=== PATIENT | female | born 1945 | race Caucasian/White ===

== ENCOUNTER 2019-07-16 07:45 | Inpatient (IN) | payer MEDICARE, BC ==
[~2019-07-16] VITALS: Ht 152.4 cm; Wt 70.5 kg
[2019-07-16] MEDS ORDERED: BIMA2.5D OP (08:25)
[2019-07-16] MEDS ORDERED: GABA-532 PO (08:25)
[2019-07-16] MEDS ORDERED: DULO-31 PO (08:25)
[2019-07-16] MEDS ORDERED: CYCL-394 PO (08:25)
[2019-07-16] MEDS ORDERED: NITR100C6 PO (08:25)
[2019-07-16] MEDS ORDERED: ATOR10TA87 PO (08:25)
[2019-07-16] MEDS ORDERED: SUCR1TAB34 PO (08:25)
[2019-07-16] MEDS ORDERED: TRAM50TA2 PO (08:25)
[2019-07-16] MEDS ORDERED: LEVO125T PO (08:25)
[2019-07-16] MEDS ORDERED: PANT-47 PO (08:25)
[2019-07-16] MEDS ORDERED: DILT120C51 PO (08:25)
[2019-07-16 08:43] LABS: BASOPHILS % (AUTO) 0.3 % (0-1); EOSINOPHILS # (AUTO) 0.1 X10'3 (0-0.9); EOSINOPHILS % (AUTO) 0.8 % (0-6); HEMATOCRIT 46.5 % (35.0-45.0); HEMOGLOBIN 15.8 g/dl (12.0-16.0); LYMPHOCYTES # (AUTO) 0.4 X10'3 (1.1-4.8); LYMPHOCYTES % (AUTO) 3.5 % (21-51); MEAN CORPUSCULAR HGB CONC 33.9 g/dL (33.0-36.5); MEAN CORPUSCULAR VOLUME 97.4 FL (78-98); MEAN PLATELET VOLUME 8.5 FL (7.4-10.4); MONOCYTES # (AUTO) 1.1 X10'3 (0-0.9); NEUTROPHILS # (AUTO) 10.5 X10'3 (1.8-7.7); NEUTROPHILS % (AUTO) 86.4 % (42-75); PLATELET COUNT 352 X10'3 (140-440); RED BLOOD COUNT 4.78 X10'6 (4.20-5.60); RED CELL DISTRIBUTION WIDTH 14.6 % (11.5-14.5); WHITE BLOOD COUNT 12.1 X10'3 (4.5-11.0)
[2019-07-16 08:58] LABS: ALANINE AMINOTRANSFERASE 19 U/L (12-78); ALBUMIN 2.6 G/DL (3.4-5.0); ALBUMIN/GLOBULIN RATIO 0.6 (1.1-1.5); ALKALINE PHOSPHATASE 123 IU/L (46-116); ANION GAP 10 (8-16); ASPARTATE AMINO TRANSFERASE 15 U/L (10-37); BILIRUBIN,TOTAL 0.4 MG/DL (0.1-1.0); BLOOD UREA NITROGEN 11 MG/DL (7-18); BUN/CREATININE RATIO 12.9 (6.6-38.0); CALCIUM 8.1 MG/DL (8.5-10.1); CHLORIDE 106 MMOL/L (99-107); CREATININE 0.85 MG/DL (0.40-0.90); GLUCOSE 143 MG/DL (70-104); POTASSIUM 3.5 MMOL/L (3.5-5.1); SODIUM 144 MMOL/L (135-145); TOTAL CARBON DIOXIDE 28.1 MMOL/L (24-32); TOTAL PROTEIN 7.3 G/DL (6.4-8.2); eGFR 65 ML/MIN
[2019-07-16] MEDS ORDERED: ondansetron/PF 4mg/2ml inj IV PRN (09:30)
[2019-07-16] MEDS ORDERED: magnesium 4gm in 100ml NS 100 ML IV PRN (09:30)
[2019-07-16] MEDS ORDERED: magnesium hydroxide 30ml (MOM) UD suspension PO PRN (09:30)
[2019-07-16] MEDS ORDERED: magnesium Cl slow-release 64mg tablet PO PRN (09:30)
[2019-07-16] MEDS ORDERED: HYDROcodone/acetaminophen 10/325mg tab PO PRN (09:30)
[2019-07-16] MEDS ORDERED: HYDROcodone/acetaminophen 5mg/325mg tablet PO PRN (09:30)
[2019-07-16] MEDS ORDERED: mag hydrox/Alum hydrox/simeth 30ml oral suspension PO PRN (09:30)
[2019-07-16] MEDS ORDERED: potassium CL 10mEq/100ml bag 100 ML IV PRN ×2 (09:30)
[2019-07-16] MEDS ORDERED: potassium Cl 20 mEq SR tablet PO PRN (09:30)
[2019-07-16] MEDS ORDERED: morphine 2 MG/ML inj. syringe IV PRN ×2 (09:30)
[2019-07-16] MEDS ORDERED: acetaminophen 325mg tablet PO PRN ×2 (09:30)
[2019-07-16] MEDS ORDERED: magnesium 2GM in 50ml NS 50 ML IV PRN (09:30)
[2019-07-16] MEDS ORDERED: LIDOcaine 1% W/epiNEPHrine 1:100,000 20ml vial SQ ONE (09:35)
--- NOTE | 2019-07-16 10:58 | NUR ---
DR ELIAS IN ROOM. NUMBING PT FOR THORACENESIS PROCEDURE
[2019-07-16] MEDS ORDERED: morphine 4 MG/ML inj SYRINge IV ONE (11:10)
[2019-07-16] MEDS ORDERED: ondansetron/PF 4mg/2ml inj IV ONE (11:10)
[2019-07-16] MEDS ORDERED: iohexol 300mg/ml 100ml inj. ONE (11:47)
--- NOTE | 2019-07-16 11:52 | NUR ---
pt to ct
[2019-07-16] MEDS: MESSAGE TO NURSING PO NR (12:00)
[2019-07-16] MEDS ORDERED: cyclobenzaprine 10mg tablet PO PRN (12:15)
--- NOTE | 2019-07-16 12:17 | NUR ---
PATIENT RETURNED FROM CT SCAN AND TAKEN DIRECTLY TO THE INPATIENT ROOM. PATIENT ALERT AND COMFORTABLE WITH AT THE BEDSIDE.
--- NOTE | 2019-07-16 12:18 | NUR ---
Patient arrived to PCU 3022 on gurney from ED. Patient transferred to hospital bed with no difficulties. Patient oriented to room and to call light. Patient vital signs: T: 97.3, HR 102, RR: 18, O2 94% 8L high flow, BP 140/75. Pain 5/10. Telemetry monitoring initiated. Paged for diet order and oxygen parameters.
--- NOTE | 2019-07-16 12:39 | NUR ---
Paged Dr. Valerio: PAGER ID: [phone] MESSAGE: RE: Shayy Bartlettann [phone]. No diet ordered for patient yet. Also what would you like her oxygen saturation at? Currently 94% on 8L high flow. Thank you. Jane [phone]
[2019-07-16] MEDS: sucralfate 1 gm tablet PO SCH ×3 (13:00→20:20)
[2019-07-16 15:00] VITALS: BP 136/70
[2019-07-16 15:14] LABS: LDH,BODY FLUID 191 U/L; TOTAL PROTEIN,BODY FLUID 3.8 G/DL
--- NOTE | 2019-07-16 16:07 | NUR ---
PAGER ID: [phone] MESSAGE: RE: Cally Bartlett [phone]. Patient has redness and yeast looking area on skin under pannus. Can we order nystatin powder? Thank you. Jane [phone]
[2019-07-16] MEDS: gabapentin 300mg capsule PO SCH ×2 (16:09→20:21)
[2019-07-16 17:12] LABS: BFAPPEAR BLOODY; BFCOLOR RED
[2019-07-16 17:13] LABS: BF RBC COUNT 16200 /CU MM; BF WBC COUNT 913 /CU MM (0-1000); BFVOLUME 19 ML; EOSINOPHILS,BODY FLUID 2 %; LYMPHOCYTES,BODY FLUID 80 %; MONOCYTES,BODY FLUID 8 %; NEUTROPHILS,BODY FLUID 10 %
[2019-07-16 17:14] LABS: BF MESOTHELIAL CELLS FEW
[2019-07-16 18:00] VITALS: BP 76/56
--- NOTE | 2019-07-16 18:00 | NUR ---
Patient in room PCU 3022. I have received report from PANCHO Lara and had the opportunity to ask questions and assume patient care.
--- NOTE | 2019-07-16 18:34 | NUR ---
Student documentation: I have reviewed and agree with all interventions, assessments performed and documented by Carolyn JOHN. Student Medication Administration: For this medication-pass time frame, all medication were reviewed, dispensed, administered and documented per hospital policy by Carolyn JOHN.
--- NOTE | 2019-07-16 18:35 | NUR ---
Problems reprioritized. Patient report given, questions answered & plan of care reviewed with Hallie DELEON. Patient stable at transfer of care.
[2019-07-16] MEDS ORDERED: CefTRIAXone/D5W-Rocephin 1gm 50 ML IV ONE (19:05)
[2019-07-16 20:10] VITALS: BP 130/66
[2019-07-16] MEDS: furosemide 20 MG/2 ML vial IV SCH (20:19)
[2019-07-16] MEDS: heparin, porcine 5000 units/ml vial SQ SCH (20:21)
[2019-07-16] MEDS: latanoprost 0.005% 2.5ml ophthalmic drops EACHEYE SCH (20:23)
[2019-07-16] MEDS: nystatin 15 GM powder TP SCH (20:24)
[2019-07-16 22:45] VITALS: BP 119/61
[2019-07-17 02:39] VITALS: BP 106/86
[2019-07-17 05:24] LABS: BASOPHILS # (AUTO) 0.1 X10'3 (0-0.2); BASOPHILS % (AUTO) 0.6 % (0-1); EOSINOPHILS # (AUTO) 0.2 X10'3 (0-0.9); HEMATOCRIT 43.2 % (35.0-45.0); HEMOGLOBIN 14.8 g/dl (12.0-16.0); LYMPHOCYTES # (AUTO) 0.5 X10'3 (1.1-4.8); LYMPHOCYTES % (AUTO) 5.6 % (21-51); MEAN CORPUSCULAR HEMOGLOBIN 33.2 PG (27.0-31.0); MEAN CORPUSCULAR HGB CONC 34.2 g/dL (33.0-36.5); MEAN CORPUSCULAR VOLUME 97.2 FL (78-98); MEAN PLATELET VOLUME 8.9 FL (7.4-10.4); MONOCYTES # (AUTO) 0.9 X10'3 (0-0.9); MONOCYTES % (AUTO) 10.1 % (2-12); NEUTROPHILS # (AUTO) 7.5 X10'3 (1.8-7.7); NEUTROPHILS % (AUTO) 81.7 % (42-75); PLATELET COUNT 346 X10'3 (140-440); RED BLOOD COUNT 4.45 X10'6 (4.20-5.60); RED CELL DISTRIBUTION WIDTH 14.4 % (11.5-14.5); WHITE BLOOD COUNT 9.1 X10'3 (4.5-11.0)
[2019-07-17 05:27] LABS: ALBUMIN 2.2 G/DL (3.4-5.0); ANION GAP 9 (8-16); BLOOD UREA NITROGEN 16 MG/DL (7-18); CHLORIDE 106 MMOL/L (99-107); CREATININE 1.07 MG/DL (0.40-0.90); GLUCOSE 157 MG/DL (70-104); MAGNESIUM 1.5 MG/DL (1.5-2.4); POTASSIUM 3.4 MMOL/L (3.5-5.1); SODIUM 144 MMOL/L (135-145); TOTAL CARBON DIOXIDE 28.6 MMOL/L (24-32); eGFR 50 ML/MIN
--- NOTE | 2019-07-17 06:30 | NUR ---
Patient in room PCU 3022. I have received report from Hallie DELEON and had the opportunity to ask questions and assume patient care. Patient asleep in bed resting comfortably and in no acute distress. Will continue to monitor
--- NOTE | 2019-07-17 06:33 | NUR ---
Problems reprioritized. Patient report given, questions answered & plan of care reviewed with PANCHO Lara.
--- NOTE | 2019-07-17 06:54 | NUR ---
Patient in room U 3022. I have received report from Hallie and had the opportunity to ask questions and assume patient care. Patient in bed, resting comfortably
[2019-07-17 07:00] VITALS: BP 139/73
[2019-07-17] MEDS ORDERED: MESSAGE TO PHARMACY PO ONE (07:00)
[2019-07-17] MEDS ORDERED: dextrose ORAL solution 15 GM/59 ML bottle PO PRN ×2 (07:00)
[2019-07-17] MEDS ORDERED: glucagon, human recombinant 1mg kit SUBCUT PRN (07:00)
[2019-07-17] MEDS ORDERED: dextrose 50%-water 50ml dispensing syringe IV PRN ×2 (07:00)
[2019-07-17] MEDS: K and/or MAG REPLACEMENT MC SCH (08:00)
[2019-07-17] MEDS: MESSAGE TO NURSING PO NR (08:00)
[2019-07-17] MEDS: atorvastatin 10mg tablet PO SCH (08:30)
[2019-07-17] MEDS: pantoprazole 40mg Tablet.DR PO SCH (08:30)
[2019-07-17] MEDS: gabapentin 300mg capsule PO SCH ×3 (08:30→21:39)
[2019-07-17] MEDS: potassium Cl 20 mEq SR tablet PO PRN ×3 (08:31→19:23)
[2019-07-17] MEDS: levoTHYROXINE 125mcg tablet PO SCH (08:31)
[2019-07-17] MEDS: sucralfate 1 gm tablet PO SCH ×4 (08:31→21:39)
[2019-07-17] MEDS: duloxetine 30mg CAPSULE.DR PO SCH (08:32)
[2019-07-17] MEDS: diltiazem CD 120mg capsule (once-daily) PO SCH (08:32)
[2019-07-17] MEDS: furosemide 20 MG/2 ML vial IV SCH ×2 (08:33→19:25)
[2019-07-17] MEDS: heparin, porcine 5000 units/ml vial SQ SCH ×2 (08:34→19:25)
[2019-07-17] MEDS: CefTRIAXone 2gm/D5W 50ml 50 ML IV SCH (08:38)
[2019-07-17 08:40] LABS: LACTATE DEHYDROGENASE 265 U/L (81-234)
[2019-07-17] MEDS: nystatin 15 GM powder TP SCH ×3 (08:48→21:44)
--- NOTE | 2019-07-17 08:49 | NUR ---
New order per Dr. Chase: PT eval and treat.
[2019-07-17 11:00] VITALS: BP 128/75
--- NOTE | 2019-07-17 14:40 | NUR ---
Malnutrition consult: Pt admit w/ large L pleural effusion recurrent per MD note. Hx glaucoma, DM A1C <7, HTN, colon CA w/ one ft. colon removed per EMR, and hypercholesterolemia. Pt/SO seen by RD; pt reports no appetite r/t nausea for one month causing wt loss and no PO. Pt reports UBW prior to loss was 68kg; pt current wt is 68kg. PO 0-25% first meal. Pt requests diet lemon-sun'aq soda on all trays to help w/ nausea and reports appetite/GI symptoms are improving since admit. Given no significant wt change, no visible signs of muscle/fat wasting, and current severe weakness only from R leg pt does not meet malnutrition criteria at this time. Pt declined further ONS options to help w/ protein needs this admit; encouraged to request RD if further questions. Will continue to monitor. Addendum: 07/17/19 at [address] Amended: Links added.
[2019-07-17 15:00] VITALS: BP 132/62
--- NOTE | 2019-07-17 18:28 | NUR ---
Problems reprioritized. Patient report given, questions answered & plan of care reviewed with Hallie DELEON. Patient stable at transfer of care.
--- NOTE | 2019-07-17 18:29 | NUR ---
Problems reprioritized. Patient report given, questions answered & plan of care reviewed with Hallie Samson RN.
--- NOTE | 2019-07-17 18:41 | NUR ---
Student documentation: I have reviewed and agree with all interventions, assessments performed and documented by Carolyn DELEON. Student Medication Administration: For this medication-pass time frame, all medication were reviewed, dispensed, administered and documented per hospital policy by Carolyn JOHN.
[2019-07-17 19:00] VITALS: BP 110/85
[2019-07-17] MEDS: lactobacillus rhamnosus 10,000 MMU CELLS/CAPSULE PO SCH (19:24)
[2019-07-17] MEDS: latanoprost 0.005% 2.5ml ophthalmic drops EACHEYE SCH (21:40)
[2019-07-17] MEDS: insulin glargine (Lantus) pen - multi-dose SQ SCH (21:43)
[2019-07-18 02:00] VITALS: BP_SYST 127; BP_SYST 129; BP_DIAS 75; BP_DIAS 85
[2019-07-18 05:48] LABS: BASOPHILS # (AUTO) 0.1 X10'3 (0-0.2); BASOPHILS % (AUTO) 0.7 % (0-1); EOSINOPHILS # (AUTO) 0.1 X10'3 (0-0.9); EOSINOPHILS % (AUTO) 1.5 % (0-6); HEMATOCRIT 43.4 % (35.0-45.0); HEMOGLOBIN 14.5 g/dl (12.0-16.0); LYMPHOCYTES # (AUTO) 0.6 X10'3 (1.1-4.8); LYMPHOCYTES % (AUTO) 6.5 % (21-51); MEAN CORPUSCULAR HEMOGLOBIN 32.9 PG (27.0-31.0); MEAN CORPUSCULAR HGB CONC 33.4 g/dL (33.0-36.5); MEAN CORPUSCULAR VOLUME 98.3 FL (78-98); MEAN PLATELET VOLUME 9.1 FL (7.4-10.4); MONOCYTES # (AUTO) 0.7 X10'3 (0-0.9); MONOCYTES % (AUTO) 7.5 % (2-12); NEUTROPHILS # (AUTO) 7.8 X10'3 (1.8-7.7); NEUTROPHILS % (AUTO) 83.8 % (42-75); PLATELET COUNT 321 X10'3 (140-440); RED BLOOD COUNT 4.42 X10'6 (4.20-5.60); RED CELL DISTRIBUTION WIDTH 14.8 % (11.5-14.5); WHITE BLOOD COUNT 9.4 X10'3 (4.5-11.0)
[2019-07-18 06:00] VITALS: BP 136/69
[2019-07-18 06:02] LABS: ALBUMIN 2.2 G/DL (3.4-5.0); ANION GAP 7 (8-16); BLOOD UREA NITROGEN 21 MG/DL (7-18); BUN/CREATININE RATIO 22.8 (6.6-38.0); CALCIUM 8.3 MG/DL (8.5-10.1); CHLORIDE 105 MMOL/L (99-107); CREATININE 0.92 MG/DL (0.40-0.90); GLUCOSE 144 MG/DL (70-104); MAGNESIUM 1.6 MG/DL (1.5-2.4); POTASSIUM 4.3 MMOL/L (3.5-5.1); SODIUM 140 MMOL/L (135-145); TOTAL CARBON DIOXIDE 28.2 MMOL/L (24-32); eGFR 59 ML/MIN
--- NOTE | 2019-07-18 06:30 | NUR ---
BrPatient in room PCU 3022. I have received report from PANCHO Sterling and had the opportunity to ask questions and assume patient care. Patient is currently resting in bed, bed locked and low, call light in reach, helped patient reposition, no acute distress, will continue to monitor.
--- NOTE | 2019-07-18 07:42 | NUR ---
Problems reprioritized. Patient report given, questions answered & plan of care reviewed with PANCHO Lozada.
[2019-07-18] MEDS: lactobacillus rhamnosus 10,000 MMU CELLS/CAPSULE PO SCH ×2 (07:57→21:01)
[2019-07-18] MEDS: atorvastatin 10mg tablet PO SCH (07:57)
[2019-07-18] MEDS: sucralfate 1 gm tablet PO SCH ×4 (07:57→21:00)
[2019-07-18] MEDS: gabapentin 300mg capsule PO SCH ×3 (07:57→21:00)
[2019-07-18] MEDS: diltiazem CD 120mg capsule (once-daily) PO SCH (07:57)
[2019-07-18] MEDS: duloxetine 30mg CAPSULE.DR PO SCH (07:58)
[2019-07-18] MEDS: pantoprazole 40mg Tablet.DR PO SCH (07:58)
[2019-07-18] MEDS: levoTHYROXINE 125mcg tablet PO SCH (07:58)
[2019-07-18] MEDS: furosemide 20 MG/2 ML vial IV SCH ×2 (07:59→21:01)
[2019-07-18] MEDS: CefTRIAXone 2gm/D5W 50ml 50 ML IV SCH (07:59)
[2019-07-18] MEDS: K and/or MAG REPLACEMENT MC SCH (08:00)
[2019-07-18] MEDS: nystatin 15 GM powder TP SCH ×3 (08:01→21:01)
[2019-07-18] MEDS: heparin, porcine 5000 units/ml vial SQ SCH ×2 (08:01→21:01)
[2019-07-18] MEDS: insulin Lispro (HumaLOG) vial - multi-dose SQ SCH ×4 (09:14→21:10)
[2019-07-18] MEDS: MESSAGE TO NURSING PO NR (10:19)
[2019-07-18 11:00] VITALS: BP 138/46
[2019-07-18 15:00] VITALS: BP 157/46
[2019-07-18] MEDS: methylPREDNISolone sod succ 125mg/2ml vial IV SCH (16:26)
--- NOTE | 2019-07-18 18:47 | NUR ---
Problems reprioritized. Patient report given, questions answered & plan of care reviewed with PANCHO Shell. Patient transferred to ACCE unit, report given, patient stable at time of transfer
[2019-07-18] MEDS: latanoprost 0.005% 2.5ml ophthalmic drops EACHEYE SCH (21:06)
[2019-07-18] MEDS: insulin glargine (Lantus) pen - multi-dose SQ SCH (21:09)
[2019-07-18 22:00] VITALS: BP 161/72
[2019-07-19] MEDS: methylPREDNISolone sod succ 125mg/2ml vial IV SCH ×3 (00:18→16:18)
[2019-07-19 02:00] VITALS: BP 113/91
[2019-07-19 02:22] LABS: BASOPHILS % (AUTO) 0 % (0-1); EOSINOPHILS % (AUTO) 0.1 % (0-6); HEMOGLOBIN 14.9 g/dl (12.0-16.0); LYMPHOCYTES # (AUTO) 0.4 X10'3 (1.1-4.8); LYMPHOCYTES % (AUTO) 3.3 % (21-51); MEAN CORPUSCULAR HEMOGLOBIN 32.3 PG (27.0-31.0); MEAN CORPUSCULAR HGB CONC 33.1 g/dL (33.0-36.5); MEAN CORPUSCULAR VOLUME 97.6 FL (78-98); MONOCYTES # (AUTO) 0.2 X10'3 (0-0.9); MONOCYTES % (AUTO) 1.7 % (2-12); NEUTROPHILS # (AUTO) 10.7 X10'3 (1.8-7.7); NEUTROPHILS % (AUTO) 94.9 % (42-75); PLATELET COUNT 353 X10'3 (140-440); RED CELL DISTRIBUTION WIDTH 14.2 % (11.5-14.5); WHITE BLOOD COUNT 11.3 X10'3 (4.5-11.0)
[2019-07-19 02:27] LABS: ALBUMIN 2.4 G/DL (3.4-5.0); ANION GAP 8 (8-16); BLOOD UREA NITROGEN 25 MG/DL (7-18); BUN/CREATININE RATIO 24.5 (6.6-38.0); CHLORIDE 103 MMOL/L (99-107); CREATININE 1.02 MG/DL (0.40-0.90); GLUCOSE 165 MG/DL (70-104); MAGNESIUM 1.5 MG/DL (1.5-2.4); POTASSIUM 3.7 MMOL/L (3.5-5.1); SODIUM 141 MMOL/L (135-145); TOTAL CARBON DIOXIDE 29.6 MMOL/L (24-32); eGFR 53 ML/MIN
[2019-07-19 06:00] VITALS: BP 164/65
--- NOTE | 2019-07-19 06:23 | NUR ---
Gave report to Gunjan. Answered all the questions.
--- NOTE | 2019-07-19 06:27 | NUR ---
Patient in room MED 312. I have received report from PANCHO Shell and had the opportunity to ask questions and assume patient care.
[2019-07-19] MEDS: K and/or MAG REPLACEMENT MC SCH (08:00)
[2019-07-19] MEDS: nystatin 15 GM powder TP SCH ×3 (08:30→19:47)
[2019-07-19] MEDS: insulin Lispro (HumaLOG) vial - multi-dose SQ SCH ×3 (08:30→19:40)
[2019-07-19] MEDS: furosemide 20 MG/2 ML vial IV SCH ×2 (08:30→19:47)
[2019-07-19] MEDS: heparin, porcine 5000 units/ml vial SQ SCH ×2 (08:33→19:48)
[2019-07-19] MEDS: diltiazem CD 120mg capsule (once-daily) PO SCH (08:34)
[2019-07-19] MEDS: gabapentin 300mg capsule PO SCH ×3 (08:35→19:47)
[2019-07-19] MEDS: atorvastatin 10mg tablet PO SCH (08:35)
[2019-07-19] MEDS: sucralfate 1 gm tablet PO SCH ×4 (08:35→19:47)
[2019-07-19] MEDS: duloxetine 30mg CAPSULE.DR PO SCH (08:35)
[2019-07-19] MEDS: lactobacillus rhamnosus 10,000 MMU CELLS/CAPSULE PO SCH ×2 (08:35→19:47)
[2019-07-19] MEDS: pantoprazole 40mg Tablet.DR PO SCH (08:35)
[2019-07-19] MEDS: levoTHYROXINE 125mcg tablet PO SCH (08:35)
[2019-07-19] MEDS: CefTRIAXone 2gm/D5W 50ml 50 ML IV SCH (08:56)
[2019-07-19 11:00] VITALS: BP 154/65
[2019-07-19 15:00] VITALS: BP 107/70
--- NOTE | 2019-07-19 18:21 | NUR ---
Problems reprioritized. Patient report given, questions answered & plan of care reviewed with PANCHO Shell.
--- NOTE | 2019-07-19 18:23 | NUR ---
I have reviewed and agree with all interventions, assessments performed and documented by PANCHO Cardona.
[2019-07-19] MEDS: latanoprost 0.005% 2.5ml ophthalmic drops EACHEYE SCH (19:49)
[2019-07-19] MEDS: insulin glargine (Lantus) pen - multi-dose SQ SCH (21:00)
[2019-07-19 22:00] VITALS: BP 130/67
[2019-07-20] MEDS: methylPREDNISolone sod succ 125mg/2ml vial IV SCH ×3 (00:08→21:45)
[2019-07-20 05:44] LABS: BASOPHILS % (AUTO) 0.1 % (0-1); EOSINOPHILS % (AUTO) 0 % (0-6); HEMATOCRIT 45.6 % (35.0-45.0); HEMOGLOBIN 15.4 g/dl (12.0-16.0); LYMPHOCYTES # (AUTO) 0.5 X10'3 (1.1-4.8); LYMPHOCYTES % (AUTO) 2.7 % (21-51); MEAN CORPUSCULAR HEMOGLOBIN 32.5 PG (27.0-31.0); MEAN CORPUSCULAR HGB CONC 33.8 g/dL (33.0-36.5); MEAN CORPUSCULAR VOLUME 96.3 FL (78-98); MEAN PLATELET VOLUME 8.8 FL (7.4-10.4); MONOCYTES # (AUTO) 0.7 X10'3 (0-0.9); MONOCYTES % (AUTO) 3.7 % (2-12); NEUTROPHILS # (AUTO) 17.4 X10'3 (1.8-7.7); NEUTROPHILS % (AUTO) 93.5 % (42-75); PLATELET COUNT 405 X10'3 (140-440); RED BLOOD COUNT 4.74 X10'6 (4.20-5.60); RED CELL DISTRIBUTION WIDTH 14.7 % (11.5-14.5); WHITE BLOOD COUNT 18.7 X10'3 (4.5-11.0)
[2019-07-20 06:00] VITALS: BP 139/75
--- NOTE | 2019-07-20 06:00 | NUR ---
Patient in room MED 312. I have received report from Suleman DELEON and had the opportunity to ask questions and assume patient care.
[2019-07-20 06:02] LABS: ALBUMIN 2.4 G/DL (3.4-5.0); ANION GAP 9 (8-16); BLOOD UREA NITROGEN 32 MG/DL (7-18); BUN/CREATININE RATIO 25.4 (6.6-38.0); CALCIUM 7.6 MG/DL (8.5-10.1); CHLORIDE 103 MMOL/L (99-107); CREATININE 1.26 MG/DL (0.40-0.90); GLUCOSE 148 MG/DL (70-104); MAGNESIUM 1.6 MG/DL (1.5-2.4); SODIUM 143 MMOL/L (135-145); TOTAL CARBON DIOXIDE 31.2 MMOL/L (24-32); eGFR 41 ML/MIN
[2019-07-20 06:13] LABS: POTASSIUM 2.8 MMOL/L (3.5-5.1)
--- NOTE | 2019-07-20 06:22 | NUR ---
Room 312 Blanquita Dhruv critical lab-potassium 2.8 will follow protocol for replacement unless you have further orders, Eileen [phone] Addendum: 07/20/19 at 622 by Eileen García RN Page was to Dr Giles, orders to notify day shift for orders. Addendum: 07/20/19 at 632 by Eileen García RN Following Addendum was on wrong patient, no response from Dr Giles yet. Addendum: 07/20/19 at 622 by Eileen García RN Page was to Dr Giles, orders to notify day shift MD for orders.
--- NOTE | 2019-07-20 06:37 | NUR ---
Gave report to Parrish. Answered all the questions.
[2019-07-20] MEDS: K and/or MAG REPLACEMENT MC SCH (08:00)
[2019-07-20] MEDS ORDERED: potassium CL 10mEq/100ml bag 100 ML IV PRN (08:35)
[2019-07-20] MEDS ORDERED: magnesium Cl slow-release 64mg tablet PO PRN (08:35)
[2019-07-20] MEDS ORDERED: potassium Cl 20 mEq SR tablet PO PRN ×2 (08:35→17:15)
[2019-07-20] MEDS: atorvastatin 10mg tablet PO SCH (09:10)
[2019-07-20] MEDS: levoTHYROXINE 125mcg tablet PO SCH (09:10)
[2019-07-20] MEDS: lactobacillus rhamnosus 10,000 MMU CELLS/CAPSULE PO SCH ×2 (09:10→21:46)
[2019-07-20] MEDS: pantoprazole 40mg Tablet.DR PO SCH (09:10)
[2019-07-20] MEDS: potassium Cl 20 mEq SR tablet PO PRN ×3 (09:10→22:09)
[2019-07-20] MEDS: gabapentin 300mg capsule PO SCH ×3 (09:10→21:46)
[2019-07-20] MEDS: duloxetine 30mg CAPSULE.DR PO SCH (09:11)
[2019-07-20] MEDS: diltiazem CD 120mg capsule (once-daily) PO SCH (09:11)
[2019-07-20] MEDS: sucralfate 1 gm tablet PO SCH ×4 (09:12→21:46)
[2019-07-20] MEDS: nystatin 15 GM powder TP SCH ×3 (09:12→21:00)
[2019-07-20] MEDS: heparin, porcine 5000 units/ml vial SQ SCH ×2 (09:13→20:00)
[2019-07-20] MEDS: furosemide 20 MG/2 ML vial IV SCH ×2 (09:17→21:45)
[2019-07-20] MEDS: CefTRIAXone 2gm/D5W 50ml 50 ML IV SCH (09:20)
[2019-07-20] MEDS: insulin Lispro (HumaLOG) vial - multi-dose SQ SCH ×2 (09:33→13:26)
[2019-07-20 11:00] VITALS: BP 141/95
[2019-07-20 15:00] VITALS: BP 123/53
[2019-07-20] MEDS ORDERED: magnesium 2GM in 50ml NS 50 ML IV PRN (17:15)
[2019-07-20] MEDS ORDERED: potassium Cl 20mEq/100mL bag 100 ML IV PRN (17:15)
[2019-07-20] MEDS ORDERED: gabapentin 400mg capsule PO ONE (17:15)
[2019-07-20] MEDS ORDERED: magnesium 4gm in 100ml NS 100 ML IV PRN (17:15)
[2019-07-20] MEDS ORDERED: MALTODEXTRIN/FRUCTOSE 0.68 KCAL/ML LIQUID 296ML BOTTLE PO ONE (17:15)
[2019-07-20] MEDS ORDERED: MESSAGE TO NURSING PO ONE (17:15)
--- NOTE | 2019-07-20 17:32 | NUR ---
Per order from Dr Yanes: called Les at [facility] who sates he will visit the patient in about an hour.
[2019-07-20 18:00] VITALS: BP 114/58
--- NOTE | 2019-07-20 18:00 | NUR ---
Problems reprioritized. Patient report given, questions answered & plan of care reviewed with Jeni DELEON.
--- NOTE | 2019-07-20 18:20 | NUR ---
Patient in room MED 312. I have received report from PANCHO Arellano and had the opportunity to ask questions and assume patient care.
[2019-07-20] MEDS: insulin glargine (Lantus) pen - multi-dose SQ SCH (21:00)
[2019-07-20] MEDS: mupirocin 2% nasal ointment 1gm UD NS SCH (21:45)
[2019-07-20] MEDS: latanoprost 0.005% 2.5ml ophthalmic drops EACHEYE SCH (21:46)
[2019-07-20 22:00] VITALS: BP 162/69
[2019-07-21] VITALS (21 sets, daily range): BP systolic 107–191; BP diastolic 17–69
[2019-07-21 05:05] LABS: BASOPHILS # (AUTO) 0.1 X10'3 (0-0.2); BASOPHILS % (AUTO) 0.4 % (0-1); EOSINOPHILS % (AUTO) 0 % (0-6); HEMATOCRIT 46.3 % (35.0-45.0); HEMOGLOBIN 15.4 g/dl (12.0-16.0); LYMPHOCYTES # (AUTO) 0.4 X10'3 (1.1-4.8); MEAN CORPUSCULAR HEMOGLOBIN 32.3 PG (27.0-31.0); MEAN CORPUSCULAR HGB CONC 33.2 g/dL (33.0-36.5); MEAN CORPUSCULAR VOLUME 97.1 FL (78-98); MEAN PLATELET VOLUME 8.4 FL (7.4-10.4); MONOCYTES # (AUTO) 0.6 X10'3 (0-0.9); MONOCYTES % (AUTO) 3.6 % (2-12); NEUTROPHILS # (AUTO) 16.8 X10'3 (1.8-7.7); PLATELET COUNT 421 X10'3 (140-440); RED BLOOD COUNT 4.77 X10'6 (4.20-5.60); RED CELL DISTRIBUTION WIDTH 14.5 % (11.5-14.5); WHITE BLOOD COUNT 17.9 X10'3 (4.5-11.0)
[2019-07-21 05:13] LABS: ALBUMIN 2.6 G/DL (3.4-5.0); ANION GAP 12 (8-16); BLOOD UREA NITROGEN 42 MG/DL (7-18); BUN/CREATININE RATIO 28.2 (6.6-38.0); CALCIUM 7.5 MG/DL (8.5-10.1); CHLORIDE 104 MMOL/L (99-107); CREATININE 1.49 MG/DL (0.40-0.90); GLUCOSE 181 MG/DL (70-104); MAGNESIUM 1.8 MG/DL (1.5-2.4); POTASSIUM 4.5 MMOL/L (3.5-5.1); SODIUM 143 MMOL/L (135-145); TOTAL CARBON DIOXIDE 27.3 MMOL/L (24-32); eGFR 34 ML/MIN
--- NOTE | 2019-07-21 06:10 | NUR ---
Problems reprioritized. Patient report given, questions answered & plan of care reviewed with PANCHO ALVARADO.
--- NOTE | 2019-07-21 06:30 | NUR ---
Patient in room MED 312. I have received report from PANCHO Ngo and had the opportunity to ask questions and assume patient care.
[2019-07-21] MEDS: mupirocin 2% nasal ointment 1gm UD NS SCH ×2 (07:11→20:15)
[2019-07-21] MEDS ORDERED: ceFAZolin 1GM/D5W- ADD-VANTAGE 50 ML IV STA (07:40)
[2019-07-21] MEDS ORDERED: insulin regular, human vial - multi-dose IV STA (07:40)
--- NOTE | 2019-07-21 07:43 | NUR ---
CALLED DR. Arnold, ANESTHEOLOGIST, AND INFORMED OF BG 301 @ 5352 AND NO PRE-OP ABX ORDERED. NEW ORDER RECEIVED: INSULIN REGULAR, IV 15UNITS; ANCEF 1GM
[2019-07-21] MEDS ORDERED: BUPIVAcaine/PF 2.5 mg/ml (0.25%) 30ml vial ONE (07:54)
[2019-07-21] MEDS ORDERED: Cefazolin 2GM/100ML NS IVPB 100 ML IV ONE (08:00)
[2019-07-21] MEDS: heparin, porcine 5000 units/ml vial SQ SCH ×2 (08:00→20:16)
--- NOTE | 2019-07-21 08:10 | NUR ---
BELONGINGS UPDATE: X2 RINGS AND X1 WATCH GIVEN TO EDEN BAIN, AT BEDSIDE
--- NOTE | 2019-07-21 08:17 | NUR ---
PATIENT TO OR W/ OR CREW
[2019-07-21] MEDS ORDERED: rocuronium 10mg/ml inj IV ONE (08:20)
[2019-07-21] MEDS ORDERED: sevoflurane 250ml liquid IH ONE (08:20)
--- NOTE | 2019-07-21 08:20 | NUR ---
Patient left the floor with OR team. Alert and oriented and in stable condition, family left with the patient. Patient to come back to ACCE for recovery.
[2019-07-21] MEDS ORDERED: midazolam 2 mg/2 ml injection ONE (08:27)
[2019-07-21] MEDS ORDERED: fentaNYL /PF 50mcg/ml 5ml ampule ONE (08:27)
[2019-07-21] MEDS ORDERED: sterile Talc 2 GM powder vial ONE (09:03)
[2019-07-21] MEDS ORDERED: phenylephrine 10mg/ml inj. ONE (09:07)
[2019-07-21] MEDS ORDERED: LIDOcaine 2% (20mg/ml) 5ml vial ONE (09:18)
[2019-07-21] MEDS ORDERED: propofol inj 20 ML IV ONE (09:18)
[2019-07-21] MEDS ORDERED: ringers solution, lacted 1,000 ML IV SCH (09:29)
[2019-07-21] MEDS ORDERED: morphine 4 MG/ML inj SYRINge IV PRN ×4 (09:30→09:50)
[2019-07-21] MEDS ORDERED: meperidine/PF 25mg/ml syringe IV PRN ×3 (09:30)
[2019-07-21] MEDS ORDERED: proCHLORperazine 10 MG/2 ml inj IV PRN (09:30)
[2019-07-21] MEDS ORDERED: ondansetron/PF 4mg/2ml inj IV PRN ×2 (09:30→09:50)
[2019-07-21] MEDS ORDERED: ondansetron/PF 4mg/2ml inj ONE (09:33)
[2019-07-21] MEDS ORDERED: dexamethasone sod phosphate 4mg/ml inj. ONE (09:33)
[2019-07-21] MEDS ORDERED: potassium cl 20mEq in 1/2 NS 1,000 ML IV SCH (09:47)
[2019-07-21] MEDS ORDERED: magnesium hydroxide 30ml (MOM) UD suspension PO PRN (09:50)
[2019-07-21] MEDS ORDERED: CADD PCA waste documentation MC PRN (09:50)
[2019-07-21] MEDS ORDERED: HYDROcodone/acetaminophen 10/325mg tab PO PRN (09:50)
[2019-07-21] MEDS ORDERED: naloxone 0.4 mg/ml inj IV PRN (09:50)
[2019-07-21] MEDS ORDERED: metoclopramide 5 mg/ml inj IV PRN (09:50)
--- NOTE | 2019-07-21 10:00 | NUR ---
Patient will not be coming back to the ACCE unit she will go to the unit.
--- NOTE | 2019-07-21 10:17 | NUR ---
Received from OR via ICU BED, accompanied by Anesthesiologist DR HUFF and report given by Anesthesiolgist. PT AWAKE, PLACED ON O2 AND MONITOR, S/P LEFT VATS, GENERAL ANESTH, PT HAS LEFT LATERAL CHEST STERI STRIPS FROM SURGICAL INCISION AND LEFT POSTERIOR CHEST TUBE EXIT COVERED WITH 4X4 SET TO CONTIUOUS SUCTION, YOUNG CATH, ART LINE TO RIGHT WRIST, FENTANYL GIVEN FOR PAIN PER ANESTHESIA, WILL CONT TO ASSESS.
[2019-07-21] MEDS ORDERED: dextrose 5%-1/2 normal saline 1,000 ML IV SCH (10:50)
[2019-07-21] MEDS: albuterol 2.5 MG/3 ML nebule NEB SCH ×4 (11:00→23:25)
--- NOTE | 2019-07-21 11:17 | NUR ---
Report GIVEN to receiving nurse. Belongings [IN PT'S ROOM]. Special Issues communicated to receiving nurse.
[2019-07-21] MEDS: diltiazem CD 120mg capsule (once-daily) PO SCH (12:44)
[2019-07-21] MEDS: CefTRIAXone 2gm/D5W 50ml 50 ML IV SCH (12:44)
[2019-07-21] MEDS: levoTHYROXINE 125mcg tablet PO SCH (12:44)
[2019-07-21] MEDS: atorvastatin 10mg tablet PO SCH (12:45)
[2019-07-21] MEDS: duloxetine 30mg CAPSULE.DR PO SCH (12:45)
[2019-07-21] MEDS: lactobacillus rhamnosus 10,000 MMU CELLS/CAPSULE PO SCH ×2 (12:45→20:16)
[2019-07-21] MEDS: pantoprazole 40mg Tablet.DR PO SCH (12:45)
[2019-07-21] MEDS: methylPREDNISolone sod succ 125mg/2ml vial IV SCH ×2 (13:02→20:15)
[2019-07-21] MEDS: K and/or MAG REPLACEMENT MC SCH (15:54)
--- NOTE | 2019-07-21 15:54 | NUR ---
Called and left message with Dr Yanes regarding decreased UO
[2019-07-21] MEDS: sucralfate 1 gm tablet PO SCH ×4 (15:55→20:16)
[2019-07-21] MEDS: nystatin 15 GM powder TP SCH ×3 (15:55→20:23)
[2019-07-21] MEDS: gabapentin 300mg capsule PO SCH ×2 (15:56→20:16)
[2019-07-21] MEDS ORDERED: albumin (Human) 5% 250ml 250 ML IV ONE ×2 (16:05→22:35)
[2019-07-21] MEDS: ceFAZolin inj. 1,000 MG in dextrose 5%-water 50ml 50 ML IV SCH (16:09)
--- NOTE | 2019-07-21 16:38 | NUR ---
ART line removed per MD order with no complications
--- NOTE | 2019-07-21 18:30 | NUR ---
Patient in room ICU 2043. I have received report from Sven DELEON, and had the opportunity to ask questions and assume patient care.
--- NOTE | 2019-07-21 19:45 | NUR ---
PT resting in bed eating dinner tray. No s/s of distress noted at this time. VSS. PT receiving 2L O2 to NC, tolerating well. O2 sat>94%. CT to LT chest with serosanguineous drainage noted. PT denies pain at this time. Bed is locked and low. Call light is within reach. Will continue to monitor.
[2019-07-21] MEDS: potassium CL 20mEq in D5-1/2NS 1,000 ML IV SCH (20:23)
[2019-07-21] MEDS: latanoprost 0.005% 2.5ml ophthalmic drops EACHEYE SCH (21:34)
[2019-07-21] MEDS: insulin Lispro (HumaLOG) vial - multi-dose SQ SCH (21:35)
[2019-07-21] MEDS: insulin glargine (Lantus) pen - multi-dose SQ SCH (21:36)
--- NOTE | 2019-07-21 22:30 | NUR ---
PT resting with no s/s of distress noted at this time. VSS. Bed is locked and low. Bilat soft wrist restraints in place and secure. Will continue to monitor.
[2019-07-22] VITALS (21 sets, daily range): BP systolic 105–152; BP diastolic 35–76
[2019-07-22] MEDS: ceFAZolin inj. 1,000 MG in dextrose 5%-water 50ml 50 ML IV SCH (00:41)
[2019-07-22] MEDS: HYDROcodone/acetaminophen 10/325mg tab PO PRN ×2 (03:03→10:30)
[2019-07-22] MEDS: albuterol 2.5 MG/3 ML nebule NEB SCH ×6 (03:30→23:14)
[2019-07-22 05:22] LABS: BASOPHILS % (AUTO) 0.1 % (0-1); EOSINOPHILS % (AUTO) 0 % (0-6); HEMATOCRIT 39.3 % (35.0-45.0); LYMPHOCYTES # (AUTO) 0.2 X10'3 (1.1-4.8); LYMPHOCYTES % (AUTO) 1.1 % (21-51); MEAN CORPUSCULAR HEMOGLOBIN 32.6 PG (27.0-31.0); MEAN CORPUSCULAR VOLUME 98.8 FL (78-98); MEAN PLATELET VOLUME 8.8 FL (7.4-10.4); MONOCYTES # (AUTO) 1.1 X10'3 (0-0.9); NEUTROPHILS % (AUTO) 91.8 % (42-75); PLATELET COUNT 310 X10'3 (140-440); RED BLOOD COUNT 3.98 X10'6 (4.20-5.60); RED CELL DISTRIBUTION WIDTH 14.3 % (11.5-14.5); WHITE BLOOD COUNT 16.3 X10'3 (4.5-11.0)
[2019-07-22 05:37] LABS: ALANINE AMINOTRANSFERASE 17 U/L (12-78); ALBUMIN 2.7 G/DL (3.4-5.0); ALBUMIN/GLOBULIN RATIO 0.8 (1.1-1.5); ALKALINE PHOSPHATASE 72 IU/L (46-116); ANION GAP 12 (8-16); ASPARTATE AMINO TRANSFERASE 12 U/L (10-37); BILIRUBIN,TOTAL 0.2 MG/DL (0.1-1.0); BLOOD UREA NITROGEN 33 MG/DL (7-18); BUN/CREATININE RATIO 23.6 (6.6-38.0); CHLORIDE 103 MMOL/L (99-107); GLUCOSE 313 MG/DL (70-104); MAGNESIUM 1.6 MG/DL (1.5-2.4); POTASSIUM 4.1 MMOL/L (3.5-5.1); SODIUM 139 MMOL/L (135-145); TOTAL CARBON DIOXIDE 23.9 MMOL/L (24-32); eGFR 37 ML/MIN
--- NOTE | 2019-07-22 06:30 | NUR ---
Patient in room ICU 2043. I have received report from carly hahn and had the opportunity to ask questions and assume patient care.
--- NOTE | 2019-07-22 06:45 | NUR ---
Problems reprioritized. Patient report given, questions answered & plan of care reviewed with Les RN.
[2019-07-22] MEDS: potassium CL 20mEq in D5-1/2NS 1,000 ML IV SCH ×2 (07:20→17:37)
[2019-07-22] MEDS: K and/or MAG REPLACEMENT MC SCH (08:00)
[2019-07-22] MEDS: CefTRIAXone 2gm/D5W 50ml 50 ML IV SCH (08:28)
[2019-07-22] MEDS: methylPREDNISolone sod succ 125mg/2ml vial IV SCH ×2 (08:29→21:18)
[2019-07-22] MEDS: mupirocin 2% nasal ointment 1gm UD NS SCH (08:32)
[2019-07-22] MEDS: sucralfate 1 gm tablet PO SCH ×4 (08:34→21:19)
[2019-07-22] MEDS: diltiazem CD 120mg capsule (once-daily) PO SCH (08:34)
[2019-07-22] MEDS: duloxetine 30mg CAPSULE.DR PO SCH (08:35)
[2019-07-22] MEDS: lactobacillus rhamnosus 10,000 MMU CELLS/CAPSULE PO SCH ×2 (08:35→21:19)
[2019-07-22] MEDS: gabapentin 300mg capsule PO SCH ×2 (08:36→21:19)
[2019-07-22] MEDS: atorvastatin 10mg tablet PO SCH (08:36)
[2019-07-22] MEDS: pantoprazole 40mg Tablet.DR PO SCH (08:37)
[2019-07-22] MEDS: levoTHYROXINE 125mcg tablet PO SCH (08:37)
[2019-07-22] MEDS: heparin, porcine 5000 units/ml vial SQ SCH ×2 (08:38→21:19)
[2019-07-22] MEDS: nystatin 15 GM powder TP SCH ×3 (08:39→21:52)
[2019-07-22] MEDS: insulin Lispro (HumaLOG) vial - multi-dose SQ SCH ×2 (08:58→18:43)
--- NOTE | 2019-07-22 10:58 | NUR ---
DR. VAN IN , NOTIFIED OF UO 30CC/HOUR LAST 5 HOURS. STATES "THATS OKAY ".
--- NOTE | 2019-07-22 14:19 | NUR ---
KIRK PATEL NOTIFIED OF 25CC UO LAST 2 HOURS. ORDERS TAKEN,. TO INFUSE NS 500CC OVER ONE HOUR.
[2019-07-22] MEDS ORDERED: normal saline 1000ml 1,000 ML IV ONE (14:25)
--- NOTE | 2019-07-22 18:16 | NUR ---
Problems reprioritized. Patient report given, questions answered & plan of care reviewed with PANCHO CARBAJAL.
--- NOTE | 2019-07-22 19:45 | NUR ---
I have received report from PANCHO Santiago and had the opportunity to ask questions and assume patient care. RN stated that patient is POD #1 a Left VATS procedure. Left chest tube in place to 20 of suction, sanchez in place.
--- NOTE | 2019-07-22 20:00 | NUR ---
Patient arrived to room 308 via hospital bed, with monitor attached. patient was transferred from ICU bed to ACCE bed via backboard. Patient arrived with all known belongings. VS within normal limits. Chest tube was hooked up to suction at 20 mmHg. 2 RN skin check was preformed. Will continue to monitor.
--- NOTE | 2019-07-22 20:13 | NUR ---
report received near 183 from PANCHO Saldana. Patient was eating her dinner tray - no complications. As I went in for the assessment, Dr Yanes stopped in to check on patient. He is aware I just received word of the open bed in the ACCE unit. PAtient to transfer to Acce room 308 per order. All procedures/and plans for the shift explained to patient prior to performing. Neurologically patient is A&O x4 but with much anxiety, Constant moving and talking making patient become winded/dyspnic. I explained to patient to stay still, take some deep breaths through nose and relax. I was able to get reading of O2 Sat 97% on 2L. VSS, afebrile. CT dressing is CDI. Per report, the starting salomon on at[facility] was [address] drainage 30 ml sero-sanguanous since 1800. Patient denies pain. Small air leak noted. Lung sounds are coarse uppers - patient has good cough and cough up phlegm and swallows it. IS at bedside in hands reach and directions for use reviewed with patient. Bases are diminished L>R. No ectopy noted. Ate 75 % dinner tray - no complications. Insulin coverage for meal and AC BG. See EMAR. No stool. No N/V. Weber with sylvia urine. Emptied prior to transfer. I gave word in report that this Weber is due to be D/C tomorrow per SCIP protocol. Skin is intact. Back is intact. Hydrofoam to coccyx. Heels slightly reddened but intact. # 18 L AC - flushed without difficulty and capped for the transfer. # 20 Right FA also flushed and capped for transfer. I gave report to PANCHO Donovan on the ACCE unit. Patient transferred to room 308 @ 1945. VSS and no distress upon leaving ICU. I left patient with Jeni on ACCE in same condition as the above assessment.
[2019-07-22] MEDS: latanoprost 0.005% 2.5ml ophthalmic drops EACHEYE SCH (21:20)
[2019-07-22] MEDS: insulin glargine (Lantus) pen - multi-dose SQ SCH (21:58)
[2019-07-23 02:00] VITALS: BP 115/53
[2019-07-23] MEDS: albuterol 2.5 MG/3 ML nebule NEB SCH ×6 (03:40→23:42)
[2019-07-23 05:32] LABS: BASOPHILS % (AUTO) 0.3 % (0-1); EOSINOPHILS % (AUTO) 0.2 % (0-6); HEMATOCRIT 39.4 % (35.0-45.0); HEMOGLOBIN 13.2 g/dl (12.0-16.0); LYMPHOCYTES # (AUTO) 0.2 X10'3 (1.1-4.8); LYMPHOCYTES % (AUTO) 0.9 % (21-51); MEAN CORPUSCULAR HEMOGLOBIN 32.5 PG (27.0-31.0); MEAN CORPUSCULAR HGB CONC 33.4 g/dL (33.0-36.5); MEAN CORPUSCULAR VOLUME 97.4 FL (78-98); MEAN PLATELET VOLUME 8.8 FL (7.4-10.4); MONOCYTES # (AUTO) 0.9 X10'3 (0-0.9); MONOCYTES % (AUTO) 4.6 % (2-12); NEUTROPHILS # (AUTO) 17.4 X10'3 (1.8-7.7); PLATELET COUNT 301 X10'3 (140-440); RED BLOOD COUNT 4.05 X10'6 (4.20-5.60); RED CELL DISTRIBUTION WIDTH 14.4 % (11.5-14.5); WHITE BLOOD COUNT 18.5 X10'3 (4.5-11.0)
[2019-07-23 05:38] LABS: ALANINE AMINOTRANSFERASE 11 U/L (12-78); ALBUMIN 2.3 G/DL (3.4-5.0); ALBUMIN/GLOBULIN RATIO 0.6 (1.1-1.5); ALKALINE PHOSPHATASE 85 IU/L (46-116); ANION GAP 8 (8-16); ASPARTATE AMINO TRANSFERASE 17 U/L (10-37); BILIRUBIN,TOTAL 0.3 MG/DL (0.1-1.0); BLOOD UREA NITROGEN 27 MG/DL (7-18); BUN/CREATININE RATIO 24.5 (6.6-38.0); CALCIUM 8.1 MG/DL (8.5-10.1); CHLORIDE 102 MMOL/L (99-107); GLUCOSE 229 MG/DL (70-104); MAGNESIUM 3.3 MG/DL (1.5-2.4); POTASSIUM 4.6 MMOL/L (3.5-5.1); SODIUM 134 MMOL/L (135-145); TOTAL CARBON DIOXIDE 24.3 MMOL/L (24-32); TOTAL PROTEIN 6.2 G/DL (6.4-8.2); eGFR 48 ML/MIN
[2019-07-23 06:00] VITALS: BP 84/66
--- NOTE | 2019-07-23 06:00 | NUR ---
Problems reprioritized. Patient report given, questions answered & plan of care reviewed with PANCHO Chi.
--- NOTE | 2019-07-23 06:38 | NUR ---
Patient in room MED 308. I have received report from PANCHO Mcduffie and had the opportunity to ask questions and assume patient care.
[2019-07-23] MEDS: K and/or MAG REPLACEMENT MC SCH (08:00)
[2019-07-23] MEDS: methylPREDNISolone sod succ 125mg/2ml vial IV SCH ×2 (08:00→20:10)
[2019-07-23] MEDS: CefTRIAXone 2gm/D5W 50ml 50 ML IV SCH (08:49)
[2019-07-23] MEDS: levoTHYROXINE 125mcg tablet PO SCH (08:49)
[2019-07-23] MEDS: diltiazem CD 120mg capsule (once-daily) PO SCH (08:49)
[2019-07-23] MEDS: pantoprazole 40mg Tablet.DR PO SCH (08:49)
[2019-07-23] MEDS: atorvastatin 10mg tablet PO SCH (08:49)
[2019-07-23] MEDS: lactobacillus rhamnosus 10,000 MMU CELLS/CAPSULE PO SCH ×2 (08:50→20:11)
[2019-07-23] MEDS: gabapentin 300mg capsule PO SCH (08:50)
[2019-07-23] MEDS: duloxetine 30mg CAPSULE.DR PO SCH (08:50)
[2019-07-23] MEDS: sucralfate 1 gm tablet PO SCH ×4 (08:50→21:41)
[2019-07-23] MEDS: heparin, porcine 5000 units/ml vial SQ SCH ×2 (08:51→20:11)
[2019-07-23] MEDS: nystatin 15 GM powder TP SCH ×3 (08:51→21:00)
[2019-07-23] MEDS: insulin Lispro (HumaLOG) vial - multi-dose SQ SCH ×3 (10:16→20:26)
[2019-07-23 11:00] VITALS: BP 109/60
--- NOTE | 2019-07-23 14:55 | NUR ---
reassessment: Pt s/p L VATS for biopsy hx prior colon and lung CA. PO 50-75% avg meals decent. Pt/SO seen by RD for written/verbal high protein ed w/ RD contact information provided. Pt reports disliking: chicken, fish, pork, turkey, eggs, and ensures. Pt is agreeable to apple slices w/ peanut butter BIDBL, cottage cheese and fruit as well as mashed potatoes at dinner tonight; requests gravy on all meats. Dietary notified. [facility] 07/21. Will continue to monitor for additional protein needs post-op given pt food preferences. Recommend: 1. continue heart healthy, carb controlled diet 2. routine bowel care 3. encourage PO Intake/high protein menu write-ins 4. honor pt food preferences; see above 5. wt per rx Addendum: 07/23/19 at [address] Amended: Links added.
[2019-07-23 15:00] VITALS: BP 109/85
[2019-07-23] MEDS: HYDROcodone/acetaminophen 10/325mg tab PO PRN (16:38)
[2019-07-23 18:00] VITALS: BP 100/53
--- NOTE | 2019-07-23 18:05 | NUR ---
Reassessment not documented from previous shift RN.
[2019-07-23] MEDS: cefepime 2g/NS 100ml ADVANTAGE 100 ML IV SCH (20:11)
[2019-07-23] MEDS: latanoprost 0.005% 2.5ml ophthalmic drops EACHEYE SCH (21:41)
[2019-07-23] MEDS: insulin glargine (Lantus) pen - multi-dose SQ SCH (21:44)
[2019-07-23 22:00] VITALS: BP 117/60
[2019-07-24] VITALS (8 sets, daily range): BP systolic 113–169; BP diastolic 53–94
[2019-07-24] MEDS: albuterol 2.5 MG/3 ML nebule NEB SCH ×6 (02:51→23:16)
[2019-07-24 05:46] LABS: BASOPHILS % (AUTO) 0.2 % (0-1); EOSINOPHILS % (AUTO) 0 % (0-6); HEMATOCRIT 40.9 % (35.0-45.0); HEMOGLOBIN 13.4 g/dl (12.0-16.0); LYMPHOCYTES # (AUTO) 0.1 X10'3 (1.1-4.8); LYMPHOCYTES % (AUTO) 0.8 % (21-51); MEAN CORPUSCULAR HEMOGLOBIN 32.1 PG (27.0-31.0); MEAN CORPUSCULAR HGB CONC 32.7 g/dL (33.0-36.5); MEAN CORPUSCULAR VOLUME 98.2 FL (78-98); MEAN PLATELET VOLUME 8.8 FL (7.4-10.4); MONOCYTES # (AUTO) 0.8 X10'3 (0-0.9); MONOCYTES % (AUTO) 4.1 % (2-12); NEUTROPHILS # (AUTO) 18.2 X10'3 (1.8-7.7); NEUTROPHILS % (AUTO) 94.9 % (42-75); PLATELET COUNT 308 X10'3 (140-440); RED BLOOD COUNT 4.16 X10'6 (4.20-5.60); RED CELL DISTRIBUTION WIDTH 14.7 % (11.5-14.5); WHITE BLOOD COUNT 19.1 X10'3 (4.5-11.0)
--- NOTE | 2019-07-24 06:10 | NUR ---
Patient in room MED 308. I have received report from Jeni RN and PANCHO Powers and had the opportunity to ask questions and assume patient care.
[2019-07-24 06:11] LABS: ALANINE AMINOTRANSFERASE 17 U/L (12-78); ALBUMIN 2.1 G/DL (3.4-5.0); ALBUMIN/GLOBULIN RATIO 0.5 (1.1-1.5); ALKALINE PHOSPHATASE 81 IU/L (46-116); ANION GAP 9 (8-16); ASPARTATE AMINO TRANSFERASE 20 U/L (10-37); BILIRUBIN,TOTAL 0.3 MG/DL (0.1-1.0); BLOOD UREA NITROGEN 32 MG/DL (7-18); BUN/CREATININE RATIO 33.3 (6.6-38.0); CALCIUM 8.4 MG/DL (8.5-10.1); CHLORIDE 106 MMOL/L (99-107); CREATININE 0.96 MG/DL (0.40-0.90); GLUCOSE 125 MG/DL (70-104); SODIUM 140 MMOL/L (135-145); TOTAL CARBON DIOXIDE 25.3 MMOL/L (24-32); TOTAL PROTEIN 6.3 G/DL (6.4-8.2); eGFR 57 ML/MIN
--- NOTE | 2019-07-24 06:30 | NUR ---
Problems reprioritized. Patient report given, questions answered & plan of care reviewed with Arti.
--- NOTE | 2019-07-24 06:39 | NUR ---
Orientee documentation and medication administration: I have reviewed and agree with all interventions, assessments performed and documented by PANCHO Powers.
[2019-07-24] MEDS: K and/or MAG REPLACEMENT MC SCH (08:00)
[2019-07-24] MEDS: duloxetine 30mg CAPSULE.DR PO SCH (08:25)
[2019-07-24] MEDS: cefepime 2g/NS 100ml ADVANTAGE 100 ML IV SCH ×2 (08:25→20:07)
[2019-07-24] MEDS: pantoprazole 40mg Tablet.DR PO SCH (08:25)
[2019-07-24] MEDS: diltiazem CD 120mg capsule (once-daily) PO SCH (08:25)
[2019-07-24] MEDS: lactobacillus rhamnosus 10,000 MMU CELLS/CAPSULE PO SCH ×2 (08:25→20:05)
[2019-07-24] MEDS: sucralfate 1 gm tablet PO SCH ×4 (08:25→20:05)
[2019-07-24] MEDS: levoTHYROXINE 125mcg tablet PO SCH (08:25)
[2019-07-24] MEDS: nystatin 15 GM powder TP SCH ×3 (08:26→21:00)
[2019-07-24] MEDS: gabapentin 300mg capsule PO SCH (08:26)
[2019-07-24] MEDS: heparin, porcine 5000 units/ml vial SQ SCH ×2 (08:26→20:07)
[2019-07-24] MEDS: atorvastatin 10mg tablet PO SCH (08:26)
[2019-07-24] MEDS: methylPREDNISolone sod succ 125mg/2ml vial IV SCH ×2 (08:27→20:05)
[2019-07-24] MEDS: insulin Lispro (HumaLOG) vial - multi-dose SQ SCH ×2 (10:27→14:10)
--- NOTE | 2019-07-24 13:47 | NUR ---
Patient emotionally labile. Encouraged anxiety reducing techniques. Patient expressed concern and panic regarding her spouses health and her own. We addressed her concerns together, I answered all questions patient had. Patient is calm at this time, verbalized understanding of anxiety reducing techniques. Return demonstrated proper breathing techniques: slow and controlled. Patient has no other questions or concerns at this time.
--- NOTE | 2019-07-24 13:54 | NUR ---
Numerous attempts to wean patient's oxygen during shift; ineffective. Patient does have home oxygen for "as needed".
--- NOTE | 2019-07-24 17:39 | NUR ---
Patient 1700 blood glucose was 54, patient asymptomatic. Administered Glucose oral solution. Rechecked blood sugar; now at 112.
--- NOTE | 2019-07-24 18:24 | NUR ---
Problems reprioritized. Patient report given, questions answered & plan of care reviewed with PANCHO Chi.
--- NOTE | 2019-07-24 21:00 | NUR ---
Patient in room MED 308. I have received report from PANCHO Chi and had the opportunity to ask questions and assume patient care.
[2019-07-24] MEDS: latanoprost 0.005% 2.5ml ophthalmic drops EACHEYE SCH (23:48)
[2019-07-24] MEDS: insulin glargine (Lantus) pen - multi-dose SQ SCH (23:53)
[2019-07-25] MEDS: HYDROcodone/acetaminophen 10/325mg tab PO PRN (00:03)
--- NOTE | 2019-07-25 01:06 | NUR ---
Done late at 2253 Addendum: 07/25/19 at 0107 by Hallie Villa RN Amended: Links added.
[2019-07-25 02:37] LABS: BASOPHILS % (AUTO) 0.2 % (0-1); EOSINOPHILS % (AUTO) 0 % (0-6); HEMOGLOBIN 13.2 g/dl (12.0-16.0); LYMPHOCYTES # (AUTO) 0.2 X10'3 (1.1-4.8); LYMPHOCYTES % (AUTO) 0.9 % (21-51); MEAN CORPUSCULAR HEMOGLOBIN 32.1 PG (27.0-31.0); MEAN CORPUSCULAR HGB CONC 32.9 g/dL (33.0-36.5); MEAN CORPUSCULAR VOLUME 97.5 FL (78-98); MEAN PLATELET VOLUME 8.8 FL (7.4-10.4); MONOCYTES # (AUTO) 0.7 X10'3 (0-0.9); MONOCYTES % (AUTO) 3.9 % (2-12); NEUTROPHILS # (AUTO) 17.3 X10'3 (1.8-7.7); PLATELET COUNT 337 X10'3 (140-440); RED CELL DISTRIBUTION WIDTH 14.4 % (11.5-14.5); WHITE BLOOD COUNT 18.3 X10'3 (4.5-11.0)
[2019-07-25 02:42] LABS: ALANINE AMINOTRANSFERASE 22 U/L (12-78); ALBUMIN/GLOBULIN RATIO 0.5 (1.1-1.5); ALKALINE PHOSPHATASE 83 IU/L (46-116); ANION GAP 8 (8-16); ASPARTATE AMINO TRANSFERASE 18 U/L (10-37); BILIRUBIN,TOTAL 0.3 MG/DL (0.1-1.0); BLOOD UREA NITROGEN 30 MG/DL (7-18); BUN/CREATININE RATIO 34.5 (6.6-38.0); CALCIUM 7.9 MG/DL (8.5-10.1); CHLORIDE 108 MMOL/L (99-107); CREATININE 0.87 MG/DL (0.40-0.90); GLUCOSE 166 MG/DL (70-104); POTASSIUM 3.6 MMOL/L (3.5-5.1); SODIUM 142 MMOL/L (135-145); TOTAL PROTEIN 6.1 G/DL (6.4-8.2); eGFR 63 ML/MIN
[2019-07-25 03:00] VITALS: BP 143/67
[2019-07-25] MEDS: albuterol 2.5 MG/3 ML nebule NEB SCH ×3 (03:20→10:43)
[2019-07-25 06:00] VITALS: BP 134/60
[2019-07-25] MEDS: nystatin 15 GM powder TP SCH ×2 (08:00→13:01)
[2019-07-25] MEDS: K and/or MAG REPLACEMENT MC SCH (08:00)
[2019-07-25] MEDS: cefepime 2g/NS 100ml ADVANTAGE 100 ML IV SCH (08:18)
[2019-07-25] MEDS: levoTHYROXINE 125mcg tablet PO SCH (08:19)
[2019-07-25] MEDS: lactobacillus rhamnosus 10,000 MMU CELLS/CAPSULE PO SCH (08:19)
[2019-07-25] MEDS: duloxetine 30mg CAPSULE.DR PO SCH (08:19)
[2019-07-25] MEDS: atorvastatin 10mg tablet PO SCH (08:19)
[2019-07-25] MEDS: gabapentin 300mg capsule PO SCH (08:19)
[2019-07-25] MEDS: diltiazem CD 120mg capsule (once-daily) PO SCH (08:19)
[2019-07-25] MEDS: sucralfate 1 gm tablet PO SCH ×2 (08:20→13:01)
[2019-07-25] MEDS: pantoprazole 40mg Tablet.DR PO SCH (08:20)
[2019-07-25] MEDS: heparin, porcine 5000 units/ml vial SQ SCH (08:20)
[2019-07-25] MEDS: methylPREDNISolone sod succ 125mg/2ml vial IV SCH (08:21)
[2019-07-25 11:00] VITALS: BP 125/56
[2019-07-25] MEDS: insulin Lispro (HumaLOG) vial - multi-dose SQ SCH (13:35)
--- NOTE | 2019-07-25 14:20 | NUR ---
reviewed transfer orders with pt and family to [facility] for rehab,report phoned to bronson @ [facility].BJORN wagner from [facility] ,site clear,pt wendi well. pt transfered with all belongings
== END 2019-07-25 14:20 | DRG 829 ==
LOC: ER 07:47 → EDBD 07:47 → ED HOLD 09:48 → EDBEDREQ 11:14 → PCU 3S 12:18 → MED 3N 07-18 18:36 → ICU 2S 07-21 10:10 → MED 3N 07-22 20:24
PROVIDERS: ADMIT Hospitalist; ATTEND Family Medicine
PROC: 0W9B3ZZ Drainage of Left Pleural Cavity, Percutaneous Approach (ICD-10-PCS; 2019-07-16)
PROC: 5A09357 Assistance with Respiratory Ventilation, Less than 24 Consecutive Hours, Continuous Positive Airway Pressure (ICD-10-PCS; 2019-07-21)
PROC: 3E0L4GC Introduction of Other Therapeutic Substance into Pleural Cavity, Percutaneous Endoscopic Approach (ICD-10-PCS; 2019-07-21)
PROC: 0BBP4ZX Excision of Left Pleura, Percutaneous Endoscopic Approach, Diagnostic (ICD-10-PCS; principal; 2019-07-21 08:20)
DX: C7A.8 Other malignant neuroendocrine tumors (principal); J18.9 Pneumonia, unspecified organism; J96.01 Acute respiratory failure with hypoxia; J90 Pleural effusion, not elsewhere classified; R91.8 Other nonspecific abnormal finding of lung field; E78.00 Pure hypercholesterolemia, unspecified; E78.5 Hyperlipidemia, unspecified; H40.9 Unspecified glaucoma; I10 Essential (primary) hypertension; E03.9 Hypothyroidism, unspecified; E87.6 Hypokalemia; I35.0 Nonrheumatic aortic (valve) stenosis; E11.51 Type 2 diabetes mellitus with diabetic peripheral angiopathy without gangrene; Z85.038 Personal history of other malignant neoplasm of large intestine; Z88.6 Allergy status to analgesic agent; Z98.1 Arthrodesis status; Z79.899 Other long term (current) drug therapy; Z79.890 Hormone replacement therapy; Z99.81 Dependence on supplemental oxygen
CPT/HCPCS: 32554; 32555; 36415; 71045; 71046; 71260; 80048; 80053; 82948; 83036; 83615; 83735; 83880; 84145; 84157; 84443; 84484; 85025; 85610; 87070; 87075; 87081; 88108; 88305; 88341; 88342; 89051; 93005; 93308; 94640; 94660; 94667; 94668; 94760; 97110; 97112; 97116; 97161; 97530; 97535; 97760; 99285; A4215; A4618; A6250; A6258; A6449; A7000; A7048; C1758; G0378; J0690; J0692; J0696; J1100; J1644; J1815; J1940; J2001; J2175; J2250; J2370; J2405; J2704; J2930; J3010; J3475; J3480; J3490; J7060; J7120; P9045; Q9967